=== PATIENT | female | born 1935 | race African-American/Black ===

== ENCOUNTER → 2016-07-08 | Outpatient (CLI) | payer MEDICARE, OTHER ==
[~2016-07-08] MED LIST: ALBUTEROL17 GM INH; AMLODIPINE BESYL5 MG PO; CALAN PO; CALCIUM 500 +1 EAC2 PO; CLONIDINE HCL0.1 MG PO; CLOPIDOGREL75 MG PO; COMBIVENT RESPIM4 GM INH; DILTIAZEM 24HR240 MG PO; DOCUSATE SODIU100 MG PO; DOXYCYCLINE PO; FERRO-TIME325 MG PO; HCTZ PO; HYZAAR PO; IBUPROFEN PO; KCL PO; LASIX PO; LIPITOR40 MG PO; PROTONIX PO; TOPROL XL50 MG PO; ZITHROMAX PO; ZYRTEC10 M1 PO
--- NOTE | ~2016-07-08 | MY11 ---
[facility] A Service of [facility] RADIOLOGY TEXT RESULTS PATIENT: TAINA CARLOS LOCATION: [facility] : 34 UNIT #: [id number] AGE: [address]: Kimber Brower MD SEX: F ORDER DR: [id number] [facility] [address] [place], [place] [address] [id number] O MR#: [id number] Acc #: [id number] NAME: TAINA CARLOS. : 1935 SEX: F STUDY DATE/TIME: 07/08/2016 13:31 UNIT: [facility] ROOM: STUDY DESCRIPTION: MY Mammogram Screening Dig Pee Attending Physician: Kimber Brower M.D. Ordering Physician: Kimber Brower M.D. Primary Care Physician: Kimber Brower M.D. MEDICAL IMAGING REPORT This report is preliminary unless electronic signature is present EXAM Bilateral digital screening mammogram 07/08/2016 INDICATIONS 81-year-old female with no personal or family history of breast cancer. FINDINGS The background breast parenchyma consists of scattered fibroglandular densities. No suspicious mass, microcalcification, or architectural distortion. Exam is compared to 07/05/2015. IMPRESSION Negative mammogram. BIRADS 1. RECOMMENDATIONS Annual screening mammogram. Patients over the age of 40 are entered into a reminder system with target due date for the next mammogram. A result letter will also be sent to the patient. BIRADS: 1 Negative Dictated by... Goldy Mckeon M.D. THIS IS AN ELECTRONICALLY VERIFIED REPORT Goldy Mckeon M.D. at 07/09/2016 9:03 AM ANNA MARIE/reema TD: 07/09/2016 00:22 JOB #: [id number] [facility] A Service of [facility] RADIOLOGY TEXT RESULTS PATIENT: TAINA CARLOS LOCATION: [facility] : 34 UNIT #: [id number] AGE: [address]: Kimber Brower MD SEX: F ORDER DR: MEDICAL IMAGING REPORT Page 1 of 1 COPY
== END | disposition home or self-care (01) ==
LOC: CWCC 13:07
DX: Z12.31 Encounter for screening mammogram for malignant neoplasm of breast (principal)
CPT/HCPCS: G0202

== ENCOUNTER 2016-07-11 14:06 | Emergency (ER) | payer MEDICARE, OTHER ==
--- NOTE | ~2016-07-11 | CT17 ---
[facility] A Service of [facility] RADIOLOGY TEXT RESULTS PATIENT: TAINA CARLOS LOCATION: [facility] : 34 UNIT #: [id number] AGE: [address]: Jaci Angel MD SEX: F ORDER DR: [id number] [facility] [address] [place], [place] [address] [id number] E MR#: [id number] Acc #: [id number] NAME: TAINA CARLOS. : 1935 SEX: F STUDY DATE/TIME: 07/11/2016 14:38 UNIT: [facility] ROOM: STUDY DESCRIPTION: CT Angio Head Attending Physician: Jaci Angel M.D. Ordering Physician: Jaci Angel M.D. Primary Care Physician: Kimber Brower M.D. MEDICAL IMAGING REPORT This report is preliminary unless electronic signature is present EXAM Head and neck CT angiogram HISTORY Slurred speech, right hand weakness and right facial droop and lethargy. plate and thank right. Facial droop and lethargy. Resting normal yesterday evening. COMPARISON STUDIES Head CT same date. PROCEDURE Axial contrast-enhanced head neck CT angiogram with three-dimensional reformats This CT exam was performed with one or more of the following radiation dose reduction techniques: automatic exposure control, adjustment of mA and/or kV according to patient size, and iterative reconstruction. FINDINGS There is a normal arch branching pattern without proximal great vessel stenosis. 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 The cervical common carotids are widely patent. There is plaque in both cervical carotid bifurcations. On the right, there is 0% to 10% ICA stenosis by NASCET criteria. On the left, there is also 0% to 10% stenosis by NASCET criteria. The upper cervical ICA's are normal bilaterally. [facility] A Service of [facility] RADIOLOGY TEXT RESULTS PATIENT: TAINA CARLOS LOCATION: [facility] : 34 UNIT #: [id number] AGE: [address]: Jaci Angel MD SEX: F ORDER DR: Intracranially, there is narrowing in both middle cerebral arteries. There is no aneurysm or convincing evidence of discrete branch vessel occlusion, but there are multiple areas of narrowing including the proximal right angular division. The anterior communicator appears patent. The left posterior communicator is probably patent. The right is not definitely demonstrated. IMPRESSION 1. No intracranial aneurysm or flow-limiting stenosis, no definite major branch vessel occlusion and no definite region or zone of hypoperfusion. There is marked irregularity and narrowing in both M1 MCA's but without a critical stenosis or branch vessel occlusion. There is also narrowing in the proximal right angular division near its origin. 2. The right vertebral is diminutive and probably occluded at its origin and partially reconstituted in the distal neck via collaterals. There is probably some degree of retrograde flow in distal right vertebral to supply the PICA. 3. Plaque at the cervical carotid bifurcations is seen bilaterally with no more than 0% to 10% ICA stenosis on either side. 4. Nodular fatty atrophy of both submandibular and parotid salivary glands suggests Sjogren syndrome or other chronic sialoadenitis. 5.Status post left hemithyroidectomy with at least 3 right thyroid nodules measuring 1.7, 1.9 and 2.4 cm in size. 6.There is some cervical spinal degenerative change. There is no acute abnormality in the lung apices. Dictated by... Ye Morin M.D. THIS IS AN ELECTRONICALLY VERIFIED REPORT Ye Morin M.D. at 07/13/2016 11:21 AM SCOTTY/yo TD: 07/11/2016 22:06 JOB #: [id number] MEDICAL IMAGING REPORT Page 1 of 1 COPY
--- NOTE | ~2016-07-11 | CT23 ---
[facility] A Service of [facility] RADIOLOGY TEXT RESULTS PATIENT: TAINA CARLOS LOCATION: [facility] : 34 UNIT #: [id number] AGE: [address]: Jaci Angel MD SEX: F ORDER DR: [id number] [facility] [address] [place], [place] [address] [id number] E MR#: [id number] Acc #: [id number] NAME: TAINA CARLOS. : 1935 SEX: F STUDY DATE/TIME: 07/11/2016 14:38 UNIT: [facility] ROOM: STUDY DESCRIPTION: CT Angio Neck Attending Physician: Jaci Angel M.D. Ordering Physician: Jaci Angel M.D. Primary Care Physician: Kimber Brower M.D. MEDICAL IMAGING REPORT This report is preliminary unless electronic signature is present EXAM CT angio neck FINDINGS Please see CT of the head for results. Dictated by... Ye Morin M.D. THIS IS AN ELECTRONICALLY VERIFIED REPORT Ye Morin M.D. at 07/13/2016 11:21 AM SCOTTY/yo TD: 07/11/2016 22:27 JOB #: [id number] MEDICAL IMAGING REPORT Page 1 of 1 COPY
--- NOTE | ~2016-07-11 | CR72 ---
[facility] A Service of [facility] RADIOLOGY TEXT RESULTS PATIENT: TAINA CARLOS LOCATION: [facility] : 34 UNIT #: [id number] AGE: [address]: Jaci Angel MD SEX: F ORDER DR: [id number] [facility] [address] [place], [place] [address] [id number] E MR#: [id number] Acc #: [id number] NAME: TAINA CARLOS. : 1935 SEX: F STUDY DATE/TIME: 07/11/2016 13:20 UNIT: [facility] ROOM: STUDY DESCRIPTION: CR Chest Single View Portable Attending Physician: Jaci Angel M.D. Ordering Physician: Jaci Angel M.D. Primary Care Physician: Kimber Brower M.D. MEDICAL IMAGING REPORT This report is preliminary unless electronic signature is present EXAM AP portable chest DATE OF EXAMINATION 07/11/2016 13:20 HISTORY 81-year-old female with mild congestion since this morning. History of stroke. COMPARISON AP portable chest 05/15/2016. FINDINGS Stable mild cardiac enlargement. Mild central vascular congestion and interstitial edema changes are thought to be present with trace bilateral pleural effusions. No dense lung consolidations. Left chest wall pacemaker leads are stable. No pneumothorax. Pericardial calcifications are present, also seen on the CT chest from 09/08/2015. IMPRESSION 1. Stable mild cardiac enlargement with central vascular congestion and probable mild central interstitial edema. 2. Trace bilateral pleural effusions. 3. Pericardial calcifications. Dictated by... Kallie Ly M.D. THIS IS AN ELECTRONICALLY VERIFIED REPORT Kallie Ly M.D. at 07/14/2016 8:37 AM LAN/alden [facility] A Service of [facility] RADIOLOGY TEXT RESULTS PATIENT: TAINA CARLOS LOCATION: [facility] : 34 UNIT #: [id number] AGE: [address]: Jaci Angel MD SEX: F ORDER DR: TD: 07/11/2016 17:21 JOB #: [id number] MEDICAL IMAGING REPORT Page 1 of 1 COPY
--- NOTE | ~2016-07-11 | EKG ---
PATIENT: TAINA CARLOS UNIT #: [id number] Ventricular Rate: 99 BPM Atrial Rate: 99 BPM P-R Interval: 196 ms QRS Duration: 78 ms Q-T Interval: 382 ms QTC Calculation(Bezet): 490 ms P [place]: 54 degrees Calculated R [place]: 48 degrees Calculated T [place]: -94 degrees Diagnosis Line: Normal sinus rhythm Diagnosis Line: ST and Marked T wave abnormality, consider Diagnosis Line: anterolateral ischemia Diagnosis Line: Inferior wall ischemia Diagnosis Line: Prolonged QT Diagnosis Line: Poor data quality Diagnosis Line: Abnormal ECG Diagnosis Line: No previous ECGs available Diagnosis Line: Confirmed by CLAUDETTE SINGLETON MD ([id number]) on Diagnosis Line: 07/12/2016 4:52:47 PM INTERPRETING MD: MELVIN
--- NOTE | ~2016-07-11 | CT71 ---
[facility] A Service of [facility] RADIOLOGY TEXT RESULTS PATIENT: TAINA CARLOS LOCATION: [facility] : 34 UNIT #: [id number] AGE: [address]: Jaci Angel MD SEX: F ORDER DR: [id number] [facility] [address] [place], [place] [address] [id number] E MR#: [id number] Acc #: [id number] NAME: TAINA CARLOS. : 1935 SEX: F STUDY DATE/TIME: 07/11/2016 14:35 UNIT: [facility] ROOM: STUDY DESCRIPTION: CT Head Wo Contrast Attending Physician: Jaci Angel M.D. Ordering Physician: Jaci Angel M.D. Primary Care Physician: Kimber Brower M.D. MEDICAL IMAGING REPORT This report is preliminary unless electronic signature is present EXAM CT head, noncontrast, 07/11/2016. HISTORY 81-year-old female sent to the ED from assisted-living facility with newly noted lethargy, right hand and right facial weakness, slurred speech and generalized weakness. TECHNIQUE CT examination of the head was performed without IV contrast. This CT exam was performed with one or more of the following radiation dose reduction techniques: automatic exposure control, adjustment of mA and/or kV according to patient size, and iterative reconstruction. COMPARISON CT head, 05/25/2016. FINDINGS No acute intracranial abnormality is visible. Moderately severe generalized cerebral and cerebellar atrophy. Diffuse low-attenuation white matter changes, nonspecific but likely related to chronic small vessel disease. Chronic dystrophic calcification in the basal ganglia. These findings are stable since the prior exam. No evidence of intracranial hemorrhage, mass, mass effect, acute cerebral edema or progressive ventricular enlargement. IMPRESSION 1. No acute intracranial abnormality. 2. Stable diffuse chronic changes as noted above. 3. No change since 05/15/2016. [facility] A Service of [facility] RADIOLOGY TEXT RESULTS PATIENT: TAINA CARLOS LOCATION: [facility] : 34 UNIT #: [id number] AGE: [address]: Jaci Angel MD SEX: F ORDER DR: Dictated by... Jerry Campoverde M.D. THIS IS AN ELECTRONICALLY VERIFIED REPORT Jerry Campoverde M.D. at 07/11/2016 10:42 PM LARY/mitchell TD: 07/11/2016 19:56 JOB #: [id number] MEDICAL IMAGING REPORT Page 1 of 1 COPY
[2016-07-11 13:31] LABS: POC - CKMB <1.0 ng/mL (0.0-7.9); POC - TROPONIN <0.05 ng/mL (<=0.05)
[2016-07-11 13:37] LABS: BASOPHIL% 0.3 % (0-2.5); EOSINOPHIL% 0.9 % (0.0-7.0); HEMATOCRIT 32.8 % (35.0-45.0); HEMOGLOBIN 10.6 gm/dL (12.0-16.0); LYMPHOCYTE# 1.4 X10e3 (1.0-3.5); LYMPHOCYTE% 26.1 % (17.0-45.0); MEAN CELL VOLUME 76.1 FL (83-96); MEAN CORPUSCULAR HEMOGLOBIN 24.6 PG (28-34); MEAN CORPUSCULAR HGB CONC 32.4 g/dL (30-36); MEAN PLATELET VOLUME 7.7 FL (6.5-11.5); MONOCYTE# 0.2 X10e3 (0-1.0); MONOCYTE% 2.8 % (3.0-12.0); NEUTROPHIL# 3.8 X10e3 (1.5-7.1); NEUTROPHIL% 69.9 % (40-75); PLATELET COUNT 327 X10e3 (140-420); RED BLOOD COUNT 4.31 X10e (3.90-5.30); RED CELL DISTRIBUTION WIDTH 16.2 % (11.0-15.5); WHITE BLOOD COUNT 5.4 X10e3 (4.0-10.5)
[2016-07-11 13:49] LABS: DIFF IND NO
[2016-07-11 14:01] LABS: ALBUMIN SERUM 3.5 g/dL (3.5-5.0); ALKALINE PHOSPHATASE 84 U/L (32-92); ALT (SGPT) 9 U/L (10-40); AST (SGOT) 16 U/L (10-42); BILIRUBIN,TOTAL 0.3 mg/dL (0.2-2.0); BLOOD UREA NITROGEN 13 mg/dL (9-23); BUN/CREATININE RATIO 16.25; CALCIUM SERUM 9.1 mg/dL (8.4-10.2); CARBON DIOXIDE 28 mmol/L (22-31); CHLORIDE 102 mmol/L (100-111); CREATININE SERUM 0.8 mg/dL (0.6-1.4); GLOM FILT RATE Estimated 79.6 mL/min (>60); GLUCOSE FASTING 97 mg/dL (70-110); POTASSIUM 3.2 mmol/L (3.5-5.1); PROTEIN TOTAL SERUM 7.8 g/dL (6.0-8.3); SODIUM 140 mmol/L (135-145)
[2016-07-11 14:03] LABS: BILIRUBIN, DIRECT <0.1 mg/dL (0.0-0.2); BILIRUBIN,INDIRECT 0.2 mg/dL (0.0-0.9)
[~2016-07-11 14:06] MED LIST changes: -ALBUTEROL17 GM INH; -AMLODIPINE BESYL5 MG PO; -CALCIUM 500 +1 EAC2 PO; -CLONIDINE HCL0.1 MG PO; -CLOPIDOGREL75 MG PO; -COMBIVENT RESPIM4 GM INH; -DILTIAZEM 24HR240 MG PO; -DOCUSATE SODIU100 MG PO; -FERRO-TIME325 MG PO; -LASIX PO; -LIPITOR40 MG PO; -PROTONIX PO; -TOPROL XL50 MG PO; -ZYRTEC10 M1 PO
[2016-07-11 14:07] LABS: URINE SOURCE CLEAN CATCH
[2016-07-11 14:11] LABS: URINE APPEARANCE CLEAR; URINE BILIRUBIN NEG (NEG); URINE BLOOD NEG (NEG); URINE COLOR YELLOW; URINE GLUCOSE NEG (NEG); URINE KETONE NEG (NEG); URINE LEUKOCYTE ESTERASE NEG (NEG); URINE NITRATE NEG (NEG); URINE PH 6.5 (5-8); URINE PROTEIN NEG (NEG); URINE SPECIFIC GRAVITY 1.013 (1.003-1.035)
[2016-07-11] MEDS ORDERED: CLONIDINE HCL0.1 MG PO (14:27)
[2016-07-11] MEDS ORDERED: COMBIVENT RESPIM4 GM INH (14:28)
[2016-07-11] MEDS ORDERED: DILTIAZEM 24HR240 MG PO (14:28)
[2016-07-11] MEDS ORDERED: AMLODIPINE BESYL5 MG PO (14:28)
[2016-07-11 14:30] LABS: CULTURE INDICATED? NO
[2016-07-11] MEDS ORDERED: CALCIUM 500 +1 EAC2 PO (14:31)
[2016-07-11] MEDS ORDERED: ZYRTEC10 M1 PO (14:31)
[2016-07-11] MEDS ORDERED: PROTONIX PO (14:31)
[2016-07-11] MEDS ORDERED: LASIX PO (14:32)
[2016-07-11] MEDS ORDERED: ALBUTEROL17 GM INH (14:32)
[2016-07-11] MEDS ORDERED: FERRO-TIME325 MG PO (14:32)
[2016-07-11] MEDS ORDERED: CLOPIDOGREL75 MG PO (14:32)
[2016-07-11] MEDS ORDERED: TOPROL XL50 MG PO (14:33)
[2016-07-11] MEDS ORDERED: LIPITOR40 MG PO (14:33)
[2016-07-11] MEDS ORDERED: DOCUSATE SODIU100 MG PO (14:34)
[2016-07-11 18:55] LABS: POC - CKMB <1.0 ng/mL (0.0-7.9); POC - TROPONIN <0.05 ng/mL (<=0.05)
== END 2016-07-11 16:59 | disposition hospice, home (50) ==
LOC: CED 14:06
PROVIDERS: Student in an Organized Health Care Education/Training Program
DX: I63.233 Cerebral infarction due to unspecified occlusion or stenosis of bilateral carotid arteries (principal); R29.810 Facial weakness; R47.81 Slurred speech; I11.0 Hypertensive heart disease with heart failure; I50.9 Heart failure, unspecified; J44.9 Chronic obstructive pulmonary disease, unspecified; Z98.890 Other specified postprocedural states; Z79.899 Other long term (current) drug therapy
CPT/HCPCS: 36415; 70450; 70496; 70498; 71010; 80048; 80076; 81003; 82553; 82947; 84484; 85025; 85610; 93005; 99285; Q9967